=== PATIENT | male | born 1960 ===

== ENCOUNTER → 2025-06-04 | Outpatient (REF) | payer MEDICARE, OTHER ==
[2025-06-08 15:52] LABS: BORRELIA SPECIES DNA NOT DETECTED (NOT DETECT)
[2025-06-09 20:23] LABS: LYME TOTAL ANTIBODY CIA <= 0.90 Index (<=0.90)
== END ==
LOC: M LAB REF 13:14
PROVIDERS: ATTEND Nurse Practitioner Adult Health
DX: R50.9 Fever, unspecified (principal); M25.50 Pain in unspecified joint